=== PATIENT | male | born 1965 | race African-American/Black ===

== ENCOUNTER 2018-09-23 19:12 | Emergency (ER) | payer MEDICARE, OTHER ==
[~2018-09-23 19:12] MED LIST: ISOVUE-370 76%-LOCM 1 ML ONE
[2018-09-23 19:35] LABS: #Basophils 0.1 thou/uL (0.0-0.2); #Eosinphils 0.1 thou/uL (0.0-0.7); #Lymphocytes 1.3 thou/uL (1.20-3.40); #Monocytes 0.5 thou/uL (0.11-0.59); #Neutrophils 7.1 thou/uL (1.40-6.50); %Basophils 0.6 % (0.0-1.0); %Eosinophils 1.3 % (0.0-10.0); %Lymphocytes 14.4 % (21.0-51.0); %Monocytes 5.9 % (0.0-10.0); %Neutrophils 77.9 % (42.0-75.0); Hemoglobin 8.9 g/dL (14.0-18.0); Mean Corpuscular HGB CONC 32.6 g/dL (32.0-36.0); Mean Corpuscular Hemoglobin 30.2 pg (27.0-31.0); Mean Corpuscular Volume 92.6 fL (78.0-98.0); Mean Platelet Volume 7.4 fL (7.4-10.4); Platelet Count 413 thou/uL (130-400); RBC Distribution Width 14.6 % (11.5-14.5); Red Blood Cell (RBC) Count 2.93 mill/uL (4.70-6.10); White Blood Cell (WBC) Count 9.1 thou/uL (4.8-10.8)
--- NOTE | 2018-09-23 19:41 | RAD ---
CHEST ONE VIEW: 09/23/18 INDICATION: Shortness of breath. COMPARISON: None. FINDINGS: The lungs are clear. The cardiomediastinal silhouette is within normal limits. No acute osseous abnor mality is evident. IMPRESSION: No acute cardiopulmonary abnormality. POS: [facility]
[2018-09-23 19:55] LABS: ALT (SGPT) 18 U/L (8-55); AST (SGOT) 11 U/L (5-34); Albumin 3.2 g/dL (3.5-5.0); Alkaline Phosphatase 113 U/L (40-150); Anion Gap 14 mmol/L (10-20); BUN (Urea Nitrogen) 20 mg/dL (8.4-25.7); Bilirubin, Total 0.3 mg/dL (0.2-1.2); Calc. Creatinine Clearance 0 mL/min (70-130); Calcium 9.2 mg/dL (7.8-10.44); Carbon Dioxide 20 mmol/L (22-29); Chloride 103 mmol/L (98-107); Estimated GFR-MDRD Greater than 90; Globulin 5.2 g/dL (2.4-3.5); Glucose 85 mg/dL (70-105); Potassium 4.3 mmol/L (3.5-5.1); Protein, Total 8.4 g/dL (6.0-8.3); Sodium 133 mmol/L (136-145)
[2018-09-23 20:25] LABS: Lactic Acid 2.7 mmol/L (0.5-2.2)
[2018-09-23 21:24] LABS: Bilirubin Negative (Negative); Blood, Urine Trace (Negative); Clarity CLEAR (Clear); Glucose, Urine (Dipstick) Negative (Negative); Leukocyte Moderate (Negative); Nitrite Negative (Negative); Protein, Urine (Dipstick) Negative (Neg-Trace); Specific Gravity, Urine 1.003 (1.002-1.036); Urobilinogen 0.2 mg/dL (0.2-1.0); pH, Urine 6.5 (5.0-9.0)
[2018-09-23 21:25] LABS: Bacteria/HPF None Seen HPF (None Seen); Hyaline Casts/LPF 0-3 HYALINE CAST LPF (0-3 Hyaline); RBC/HPF 0-3 HPF (0-3); Squamous Epithelial 0-3 HPF (0-3)
--- NOTE | 2018-09-23 21:58 | CT ---
CT OF THE ABDOMEN AND PELVIS WITH IV CONTRAST 09/23/18 INDICATION: Rule out perforation or abscess within the abdomen. COMPARISON: None. FINDINGS: There is subsegmental volume loss within both lung bases. No focal hepatic lesion is evident. The pancreas and spleen appear within normal limits. There is bilateral adrenal masses. The one on the left measures approximately 2 cm. The one on the ri ght measures approximately 1.3 cm. No focal renal lesion is grossly evident. There are moderate calcification involving the abdominal aorta. There is mild ectasia of the distal abdominal aorta. There is aneurysmal dilatation of the right comm on iliac artery measuring 3.1 cm. There is a 1.7 cm fusiform aneurysm extending off the left internal iliac artery on image 57 of series 3. There is scattered diverticula involving the colon without evidence of active diverticulitis. Small b owel is of normal caliber. A normal appendix is seen within the right lower quadrant. Beam scattered artifact from the patient's left total hip prosthesis limits image details of the lowe r pelvis. No definite free fluid or pathologically enlarged lymph nodes are grossly evident. There is a large polymethyl methacrylate antibiotic spacer within the left hip. There is a displaced broken c erclage wires surrounding the left hip. There is advanced osteoarthrosis of the right hip with benign appearing sclerotic lesions involving the proximal right femur. There is advanced degenerative dee e of the right SI joint. There is scattered degenerative change of the lower lumbar spine. IMPRESSION: 1. No intra-abdominal abscess or perforation demonstrated. 2. 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 3. Colonic diverticulosis. 4. Antibiotic spacer within the left hip with prominent beam scattered artifact limiting evaluat ion of the lower pelvis from the left hip prosthesis. 5. Benign appearing sclerotic lesions involving the proximal right femur. 6. Nonspecific bilateral adrenal masses. followup CT of the abdomen utilizing adrenal mass juwan col may be helpful for further characterization. This could be performed as a nonemergent setting. POS: [facility]
--- NOTE | 2018-09-23 22:02 | CT ---
CTA OF THE THORAX UTILIZING IV CONTRAST, PE PROTOCOL AND 3D REFORMATTED IMAGING 09/23/18 INDICATION: Shortness of breath. COMPARISON: None. FINDINGS: No central or segmental pulmonary embolus is evident. There is a small pericardial effusion. There are coronary artery and thoracic aortic calcifications. No definite pathologically enlarged lymph nodes are evident. There are areas of subsegmental volume loss involving both lower lobes. There are patchy areas of damon tral lobular emphysema. No pleural effusion or pneumothorax is evident. There is scattered degenerative and osteoarthritic change. No definite acute osseous abnormality is e vident. IMPRESSION: 1. No central or segmental pulmonary embolus. 2. Mild to moderate central lobular emphysema. 3. Mild bibasilar atelectasis involving the lung bases. POS: [facility]
--- NOTE | 2018-09-27 13:13 | EKG ---
Test Reason : Blood Pressure : / mmHG Vent. Rate : 071 BPM Atrial Rate : 071 BPM P-R Int : 128 ms QRS Dur : 084 ms QT Int : 390 ms P-R-T Axes : 077 042 131 degrees QTc Int : 423 ms Normal sinus rhythm Nonspecific T wave abnormality Abnormal ECG Confirmed by JESI LOERA DO ([id number]), editor producer DICKSON VIRK ([id number] on 09/27/2018 1:12:56 PM Referred By: Confirmed By:JESI LOERA DO
== END 2018-09-24 02:26 | disposition home or self-care (01) ==
LOC: ERS 19:12
DX: R06.02 Shortness of breath (principal); F17.210 Nicotine dependence, cigarettes, uncomplicated; Z86.73 Personal history of transient ischemic attack (TIA), and cerebral infarction without residual deficits
CPT/HCPCS: 36415; 71045; 71275; 74177; 80053; 81003; 81015; 83605; 83880; 84484; 85025; 85379; 87040; 87070; 87077; 87186; 87205; 93005; 94760; Q9966

== ENCOUNTER 2018-09-25 13:15 | Outpatient (CLI) | payer MEDICARE ==
[2018-09-25] MEDS ORDERED: Sodium Chloride 0.9% 15 ML NEB ONE (18:00)
--- NOTE | 2018-09-25 23:05 | HP ---
HISTORY OF PRESENT ILLNESS: Mr. Javed Singh, the 3rd is a very pleasant 53-year-old gentleman, accompanied by his niece who presents to the [facility]ound Center for evaluation of a perineal wound. The patient states that approximately 3 weeks ago he had hip surgery at [facility]. He states that "they put spacers and cleaned out infection in the hip." He states that he was subsequently transferred to [facility]. He states that either at [facility] or [facility] he underwent surgery for an infectious process resulting in the perineal wound with which he presents to clinic today. The patient states that he left [facility] on his own and is now residing at home. He states that he presented to the emergency department for dyspnea and lightheadedness. He states that at this time, he was referred to the Wound Center for further evaluation and treatment of the perineal wound. PAST MEDICAL HISTORY: Negative for any chronic medical conditions including diabetes mellitus, coronary artery disease, or hypertension. PAST SURGICAL HISTORY: 1. Surgery for broken hip. 2. Hip replacement. 3. Revision of hip replacement. 4. Left hip surgery at [facility] as per HPI. MEDICATIONS: Ibuprofen p.r.n. ALLERGIES: NO KNOWN DIAGNOSED ALLERGIES. SOCIAL HISTORY: Social history is significant for tobacco use of 1/2 pack of cigarettes per day for 20 years. Social history is also significant for the consumption of six drinks per day for the past 20 years. The patient states, however, that he has not consumed any alcohol in 2 months. FAMILY HISTORY: Family history is negative for diabetes mellitus or coronary artery disease. PHYSICAL EXAMINATION: VITAL SIGNS: Temperature 98.1, pulse 97, respirations 18, blood pressure 132/79. GENERAL: A 53-year-old gentleman, lying on table in examination room, in no acute distress. HEENT: Normocephalic and atraumatic. NECK: No nuchal rigidity. CHEST: Clear to auscultation. CV: Regular rate and rhythm. ABDOMEN: Soft. EXTREMITIES: No clubbing, cyanosis, or edema. PERINEUM: A perineal wound is present, which measures approximately 15.0 x 3.0 cm. Granulation tissue is present within the wound margins. No purulent drainage is associated with the wound. No erythema of the skin surrounding the wound is present. No maceration of the skin of the periwound is noted. ASSESSMENT AND PLAN: Perineal wound as described above. Dressing changes of Multidex powder followed by gauze and an ABD secured with tape will be initiated today. These dressing changes are to be performed on a daily basis after cleansing and irrigation with the assistance of Home Health. No antibiotics will be prescribed today based upon the appearance of the wound. I will see Mr. Singh again in 2 weeks. The patient and his niece understand and are in agreement with the preceding treatment plan. I have asked the patient and the patient's niece to arrange for a followup appointment with Orthopedic Surgery at [facility]. The patient and his niece state that they will try to obtain this followup appointment with [facility] Orthopedic Surgery. Job ID: [id number]
== END 2018-09-25 13:16 | disposition home or self-care (01) ==
LOC: WCC 13:15
PROVIDERS: ATTEND Family Medicine
DX: T81.89XD Other complications of procedures, not elsewhere classified, subsequent encounter (principal)
CPT/HCPCS: A4218

== ENCOUNTER 2018-10-01 09:40 | Emergency (ER) | payer MEDICARE ==
[2018-10-01 12:08] LABS: #Basophils 0.1 thou/uL (0.0-0.2); #Lymphocytes 0.3 thou/uL (1.20-3.40); #Monocytes 0.2 thou/uL (0.11-0.59); #Neutrophils 10.3 thou/uL (1.40-6.50); %Basophils 0.6 % (0.0-1.0); %Eosinophils 0.3 % (0.0-10.0); %Lymphocytes 2.6 % (21.0-51.0); %Monocytes 1.4 % (0.0-10.0); %Neutrophils 95.1 % (42.0-75.0); Hemoglobin 8.9 g/dL (14.0-18.0); Mean Corpuscular HGB CONC 31.9 g/dL (32.0-36.0); Mean Corpuscular Volume 94.2 fL (78.0-98.0); Mean Platelet Volume 6.8 fL (7.4-10.4); Platelet Count 452 thou/uL (130-400); RBC Distribution Width 14.9 % (11.5-14.5); Red Blood Cell (RBC) Count 2.98 mill/uL (4.70-6.10); White Blood Cell (WBC) Count 10.8 thou/uL (4.8-10.8)
[2018-10-01 12:31] LABS: ALT (SGPT) 7 U/L (8-55); AST (SGOT) 10 U/L (5-34); Albumin 2.9 g/dL (3.5-5.0); Alkaline Phosphatase 80 U/L (40-150); Anion Gap 9 mmol/L (10-20); BUN (Urea Nitrogen) 9 mg/dL (8.4-25.7); Bilirubin, Total 0.3 mg/dL (0.2-1.2); Calc. Creatinine Clearance 0 mL/min (70-130); Calcium 9.1 mg/dL (7.8-10.44); Carbon Dioxide 23 mmol/L (22-29); Chloride 109 mmol/L (98-107); Estimated GFR-MDRD Greater than 90; Globulin 4.6 g/dL (2.4-3.5); Glucose 96 mg/dL (70-105); Potassium 4.4 mmol/L (3.5-5.1); Protein, Total 7.5 g/dL (6.0-8.3); Sodium 137 mmol/L (136-145)
[2018-10-01] MEDS ORDERED: AMIKACIN SULFATE IVPB SCH (15:45)
[2018-10-01] MEDS ORDERED: SODIUM CHLORIDE 0.9% IVPB SCH (15:45)
== END 2018-10-01 16:32 | disposition home or self-care (01) ==
LOC: ERS 09:40
DX: K61.1 Rectal abscess (principal); F17.210 Nicotine dependence, cigarettes, uncomplicated
CPT/HCPCS: 36415; 80053; 83605; 85025; 99283; J0278; J7050

== ENCOUNTER 2018-10-09 15:10 | Outpatient (CLI) | payer MEDICARE ==
--- NOTE | 2018-10-09 16:56 | PRG ---
DATE OF SERVICE: 10/09/2018 HISTORY: Mr. Javed Singh, the 3rd is a very pleasant 53-year-old gentleman, who presents to the Wound Center for evaluation of a perineal wound. The patient previously stated that approximately 3 weeks prior to his initial presentation to the Wound Center, he underwent hip surgery at [facility]. He stated that "they put spacers and cleaned out infection in the hip." He stated that he was subsequently transferred to [facility]. He stated that either at [facility] or [facility], he underwent surgery for an infectious process resulting in a perineal wound. The patient stated that he left [facility] on his own and returned home. He stated that he presented to the emergency department for dyspnea and lightheadedness. He stated that at this time he was referred to the Wound Center for further evaluation and treatment of his perineal wound. PHYSICAL EXAMINATION: VITAL SIGNS: Temperature 98.2, pulse 107, respirations 20, blood pressure 166/90. PERINEUM: A perineal wound is present, which measures approximately 9.0 x 1.1 cm. The dimensions of the wound at the time of the patient's last visit were approximately 15.0 x 3.0 cm. Granulation tissue is present within the wound margins. No purulent drainage is associated with the wound. No erythema of the skin surrounding the wound is present. No maceration of the skin of the periwound is noted. ASSESSMENT AND PLAN: Perineal wound as described above. Dressing changes of Multidex powder followed by gauze and an ABD secured with tape will be continued on a daily basis after cleansing and irrigation with the assistance of Home Health. I will see Mr. Singh again in 2 weeks. Again, I have reiterated to the patient his need for a followup appointment with Orthopedic Surgery at [facility]. The patient states that he will continue his efforts to try to obtain this followup appointment. Job ID: [id number]
[2018-10-09] MEDS ORDERED: Sodium Chloride 0.9% 15 ML NEB ONE (19:46)
== END 2018-10-09 15:11 | disposition home or self-care (01) ==
LOC: WCC 15:10
PROVIDERS: ATTEND Family Medicine
DX: T81.89XD Other complications of procedures, not elsewhere classified, subsequent encounter (principal)
CPT/HCPCS: 97602; A4218

== ENCOUNTER 2018-10-27 13:51 | Outpatient (CLI) | payer MEDICARE ==
--- NOTE | 2018-10-27 16:22 | PRG ---
DATE OF SERVICE: 10/27/2018 SUBJECTIVE: Mr. Javed Singh, the 3rd is a very pleasant 53-year-old gentleman, who presents to the Wound Center for evaluation of a perineal wound. The patient previously stated that approximately 3 weeks prior to his initial presentation to the Wound Center. He underwent hip surgery at [facility]. He stated that "they put spacers and cleaned out infection in the hip." He stated that he was subsequently transferred to [facility]. He stated that either at [facility] or [facility], he underwent surgery for an infectious process resulting in a perineal wound. The patient stated that he left [facility] on his own and returned home. He stated that he presented to the emergency department for dyspnea and lightheadedness. He stated that at this time he was referred to the Wound Center for further evaluation and treatment of his perineal wound. OBJECTIVE: VITAL SIGNS: Temperature 98.1, pulse 99, respirations 18, and blood pressure 175/106. PERINEUM: The perineal wound is present, which measures approximately 2.7 x 0.4 cm. The dimensions of the wound at the time of the patient's visit on 10/09/2018, were approximately 9.0 x 1.1 cm. Granulation tissue is present within the wound margins. No purulent drainage is associated with the wound. No erythema of the skin surrounding the wound is present. No maceration of the skin of the periwound is noted. ASSESSMENT AND PLAN: Perineal wound as described above. Dressing changes of Multidex powder followed by gauze and an ABD secured with tape will be continued on a daily basis after cleansing and irrigation with the assistance of Home Health. I will see Mr. Singh again in 3 weeks. Again, I have reiterated to the patient his need for a followup appointment with Orthopedic Surgery at [facility]. Job ID: [id number]
[2018-10-27] MEDS ORDERED: Sodium Chloride 0.9% 15 ML NEB ONE (18:00)
== END 2018-10-27 13:52 | disposition home or self-care (01) ==
LOC: WCC 13:51
PROVIDERS: ATTEND Family Medicine
DX: T81.89XD Other complications of procedures, not elsewhere classified, subsequent encounter (principal)
CPT/HCPCS: A4218